=== PATIENT | female | born 1950 | race Caucasian/White ===

== ENCOUNTER 2017-10-29 14:56 | Emergency (ER) | payer BC ==
[~2017-10-29] VITALS: Ht 154.9 cm; Wt 71.2 kg
[~2017-10-29 14:56] MED LIST: AZIT250T13 PO; GUAI100S9 PO; METF10002 PO; OSEL75CA PO; RAMI10CA PO
--- NOTE | 2017-10-29 15:24 | NUR ---
Patient says that her adult son has the same s/sx, respiration :easy, pending MD evaluation
[2017-10-29 16:01] LABS: BASOPHILS # (AUTO) 0.1 K/uL (0.0-8.0); BASOPHILS % (AUTO) 0.4 % (0.0-2.0); EOSINOPHILS # (AUTO) 0.2 K/uL (0.0-0.7); EOSINOPHILS % (AUTO) 1.6 % (0.0-7.0); HEMATOCRIT 42.3 % (31.2-41.9); LYMPHOCYTES # (AUTO) 1.2 K/uL (20.0-40.0); LYMPHOCYTES % (AUTO) 9.1 % (20.5-51.5); MEAN CORPUSCULAR HEMOGLOBIN 29.3 uug (24.7-32.8); MEAN CORPUSCULAR HGB CONC 33 g/dL (32.3-35.6); MEAN CORPUSCULAR VOLUME 88.8 fL (75.5-95.3); MONOCYTES # (AUTO) 0.7 K/uL (2.0-10.0); MONOCYTES % (AUTO) 4.8 % (0.0-11.0); NEUTROPHILS # (AUTO) 11.4 K/uL (1.8-8.9); NEUTROPHILS % (AUTO) 84.1 % (38.5-71.5); PLATELET COUNT (AUTO) 319 K/uL (179-408); RED BLOOD CELL COUNT(AUTO) 4.76 MIL/uL (3.63-4.92); WHITE BLOOD COUNT (AUTO) 13.5 K/uL (3.8-11.8)
[2017-10-29 16:11] LABS: CREATININE 0.6 mg/dL (0.6-1.3)
[2017-10-29 16:17] LABS: BILIRUBIN,TOTAL 0.5 mg/dL (0.2-1.0); TOTAL PROTEIN, SERUM 7.3 g/dL (6.4-8.2)
--- NOTE | 2017-10-29 16:17 | NUR ---
MD is at bedside evaluating the patient.
--- NOTE | 2017-10-29 17:17 | NUR ---
public affairs officer was called for assistance regarding patient's family members' behaviour (yelling in our ER department) after frequent reminders and explanation for potential delays in ER. Nursing cutting room supervisor Myriam was also notified.
[2017-10-29] MEDS ORDERED: ONDANSETRON IV *ER 4 MG/2 ML VIAL IV ONE ×2 (17:30→18:15)
[2017-10-29] MEDS ORDERED: IV NS 1000 ML 1,000 ML IV ONE (17:30)
[2017-10-29] MEDS ORDERED: ONDANSETRON 4 MG/2 ML VIAL ONE ×2 (17:39→18:26)
[2017-10-29] MEDS ORDERED: MORPHINE SULFATE 2 MG/1 ML DISP.SYRIN IV ONE (18:13)
[2017-10-29] MEDS ORDERED: MORPHINE SULFATE 2 MG/1 ML DISP.SYRIN ONE (18:23)
--- NOTE | 2017-10-29 19:14 | NUR ---
Hands off report given to VERONICA Vega accordingly
[2017-10-29 19:21] LABS: *BILIRUBIN,URIN NEGATIVE (NEGATIVE); *BLOOD, URINE NEGATIVE (NEGATIVE); *CLARITY,URINE SLIGHTLY CLOUDY (CLEAR); *COLOR,URINE YELLOW (YELLOW); *KETONES,URINE TRACE (NEGATIVE); *PROTEIN,URINE NEGATIVE (NEGATIVE); *UROBILINOGEN,URINE 0.2 E.U./dl (NORMAL); LEUKOCYTE ESTERASE ,URINE TRACE (NEGATIVE); NITRITE, URINE POSITIVE (NEGATIVE); PH,URINE 6.5 (5.0-8.0); UGLUCOSE NEGATIVE (NEGATIVE)
--- NOTE | 2017-10-29 19:21 | NUR ---
Received report from VERONICA Lloyd. Assumed care of pt at this time.
[2017-10-29 19:33] LABS: BACTERIA,URINE MANY /HPF (NONE SEEN); RBC,URINE 0-3 /HPF (0-3); SQUAMOUS EPITHELIAL CELL,UR FEW /HPF (NONE SEEN)
--- NOTE | 2017-10-29 19:42 | NUR ---
Pt to CT via [facility]
[2017-10-29] MEDS ORDERED: IOHEXOL 300MG/ML 100 ML INFUS..BTL ONE (19:48)
[2017-10-29] MEDS ORDERED: NORMAL SALINE FLUSH 10 ML DISP.SYRIN ONE (19:48)
[2017-10-29] MEDS ORDERED: IV NORMAL SALINE 250 ML IV ONE (19:49)
--- NOTE | 2017-10-29 20:19 | NUR ---
PT BACK IN ROOM FROM CT
--- NOTE | 2017-10-29 20:43 | NUR ---
PT RESTING IN A POSITION OF COMFORT, EYES CLOSED
[2017-10-30 02:16] VITALS: BP 130/65
== END 2017-10-29 21:45 | disposition home or self-care (01) ==
LOC: ER 14:58
DX: N20.0 Calculus of kidney (principal); D72.829 Elevated white blood cell count, unspecified; I10 Essential (primary) hypertension; E11.9 Type 2 diabetes mellitus without complications
CPT/HCPCS: 36415; 74022; 74177; 80053; 81001; 83690; 85025; 93005; 96361; 96374; 96375; 99285; A4663; J2270; J2405 ×2; J3490; J7030; J7050; Q9967

== ENCOUNTER 2018-07-21 18:46 | Emergency (ER) | payer MEDICARE, OTHER ==
[~2018-07-21] VITALS: Ht 154.9 cm; Wt 74.8 kg
[~2018-07-21 18:46] MED LIST changes: -AZIT250T13 PO; -GUAI100S9 PO; +METF-442 PO; -METF10002 PO; -OSEL75CA PO; -RAMI10CA PO; +RAMI10CA69 PO
[2018-07-21] MEDS ORDERED: KETOROLAC TROMETHAMINE 30 MG INJ ONE (19:14)
[2018-07-21] MEDS ORDERED: KETOROLAC TROMETHAMINE 30 MG INJ IM ONE (19:15)
--- NOTE | 2018-07-21 19:24 | NUR ---
Patient discharged to home in stable conditon. Written and verbal after care instructions given. Patient verbalizes understanding of instructions.
[2018-07-21 19:25] VITALS: BP 147/72
== END 2018-07-21 19:27 | disposition home or self-care (01) ==
LOC: ER 18:48
DX: M54.30 Sciatica, unspecified side (principal); I10 Essential (primary) hypertension; E11.9 Type 2 diabetes mellitus without complications; Z90.710 Acquired absence of both cervix and uterus
CPT/HCPCS: A4663; J1885